=== PATIENT | female | born 2005 | race Caucasian/White ===

== ENCOUNTER 2025-02-03 10:53 | Outpatient (CLI) | payer OTHER, SELFPAY ==
--- NOTE | ~2025-02-03 | XR_ITS ---
Clinical Indication: Tachycardia PA and lateral views of the chest: Comparison: None Findings: The lungs are clear, without evidence of focal consolidation or pleural effusion. Cardiome diastinal silhouette is within normal limits. Bones and soft tissues are unremarkable. Impression: Normal chest. Reviewed, dictated and finalized at location . Impression: Normal chest.
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
== END 2025-02-03 10:54 | disposition home or self-care (01) ==
LOC: ANHIMG 11:04
DX: R00.0 Tachycardia, unspecified (principal)
CPT/HCPCS: 71046

== ENCOUNTER 2025-03-12 17:40 | Emergency (ER) | payer OTHER, SELFPAY ==
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
[2025-03-12 18:27] VITALS: BP 136/80; PULSE 100; RESP 16; TEMP 36.6; O2SAT 100
--- NOTE | 2025-03-12 21:25 | ED_ITS ---
HPI - General Adult General Chief complaint: Anxiety Stated complaint: lightheaded, numbness to arms but has resolved Time Seen by Provider: 03/12/25 20:53 History of Present Illness HPI narrative: This is a 19-year-old with history of anxiety panic attacks presenting with chief complaint of lightheadedness. She was in her car she started to feel lightheaded. She started taking rapid deep breaths to try to improve the lightheadedness developed pins and needles and tingling in her hands. She says this feels like a panic attack. She has had had massive amount of panic attacks this month and has been placed buspirone and sertraline which she stopped taking due to side effects. She denies any other physical complaints this time. She is currently asymptomatic. Related Data Allergies Allergy/AdvReac Type Severity Reaction Status Date / Time No Known Allergies Allergy Verified 03/12/25 17:41 Exam Narrative: APPEARANCE: Anxious. Head: atraumatic. EYES: EOMI, NOSE: Atraumatic NECK: Trachea midline RESPIRATORY: No increased rate of breathing CTAB CARDIOVASCULAR: RRR, no peripheral edema ABDOMINAL: Non-distended nontender MUSCULOSKELETAl: No obvious deformities NEURO: Alert. Moving 4/4 extremities SKIN:: Warm, dry. Normal color PSYCHIATRIC: Anxious Course Vital Signs Vital signs: Vital Signs Temperature 97.8 F 03/12/25 18:27 Pulse Rate 100 03/12/25 18:27 Respiratory Rate 16 03/12/25 18:27 Blood Pressure 136/80 03/12/25 18:27 Pulse Oximetry 100 03/12/25 18:27 Oxygen Delivery Room Air 03/12/25 18:27 Temperature 97.8 F 03/12/25 18:27 Pulse Rate 100 03/12/25 18:27 Respiratory Rate 16 03/12/25 18:27 Blood Pressure 136/80 03/12/25 18:27 Pulse Oximetry 100 03/12/25 18:27 Oxygen Delivery Room Air 03/12/25 18:27 Medical Decision Making [facility] Narrative Medical decision making narrative: -Course: This is a 19-year-old female history anxiety can panic attacks today with episode of lightheadedness. Symptoms consistent with an anxiety attack. Patient has been on appropriate medications but has stopped them due to side effects. I encouraged her to resume taking. She will call her primary care physician tomorrow morning to follow-up. Given return precautions for SI HI or another panic attack -DDX includes but is not limited to: Anxiety, panic disorder Vital Signs Vital Signs: Vital Signs Temperature 97.8 F 03/12/25 18:27 Pulse Rate 100 03/12/25 18:27 Respiratory Rate 16 03/12/25 18:27 Blood Pressure 136/80 03/12/25 18:27 Pulse Oximetry 100 03/12/25 18:27 Oxygen Delivery Room Air 03/12/25 18:27 Temperature 97.8 F 03/12/25 18:27 Pulse Rate 100 03/12/25 18:27 Respiratory Rate 16 03/12/25 18:27 Blood Pressure 136/80 03/12/25 18:27 Pulse Oximetry 100 03/12/25 18:27 Oxygen Delivery Room Air 03/12/25 18:27 Discharge Plan Discharge Clinical Impression: Hyperventilation, Acute anxiety Patient Disposition: Home Condition: Stable Instructions: Antibiotic Form, Anxiety (ED) Additional Instructions: You were seen in the emergency department for anxiety. Please follow-up primary care physician. Please take your anxiety meds as prescribed. Return if you develop thoughts of harming herself or other Patient Language: French Follow-up/Referrals: Baylee,Kelly Escalante, [employer] [Primary Care Provider] -
== END 2025-03-12 22:01 | disposition home or self-care (01) ==
PROVIDERS: Emergency Provider Emergency Medicine
DX: R06.4 Hyperventilation (principal); F41.0 Panic disorder [episodic paroxysmal anxiety]; T43.596A Underdosing of other antipsychotics and neuroleptics, initial encounter; T43.226A Underdosing of selective serotonin reuptake inhibitors, initial encounter; Z91.128 Patient's intentional underdosing of medication regimen for other reason
CPT/HCPCS: 99281

== ENCOUNTER 2025-05-21 10:50 | Emergency (ER) | payer OTHER, SELFPAY ==
[2025-05-21] VITALS (16 sets, daily range): BP systolic 109–134; BP diastolic 65–81; PULSE 75–125; RESP 13–30; TEMP 36.9; O2SAT 99–100
--- OUTSIDE RECORDS SUMMARY | 2025-05-21 10:52 | XMS_ITS | Data Portability ---
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 Lisa MD [facility] [address] [address] 05/04/2025 12:40:31 05/04/2025 13:10:35 Erythematous rash 099576910 R21 Rt arm Cellulitis of right upper limb [id number] 5743448 L03.113 Tinea corporis 87915862 B35.4 Rt arm Health Concerns Section Related Observation LastModified by Organization Detai ls LastModified Time None Recorded Concern Status LastModified by Organization Details LastModified Time None Recorded Advance Directives Directive N: Payers Insurance Date Sequence Insurance Name Policy Number Policy Villaseñor Covered Member ID Villaseñor Member ID Guarantor Name 05/04/2025 1 [facility] ON OR AFTER 05/17/21 (MEDICAID REPLACEMENT - HMO) Valarie Woody [id number] Valarie Woody 05/04/2025 1 [place]: [place] [employer] Valarie Mckay [id number] Valarie Mckay 05/04/2025 1 [employer] [facility] ON OR AFTER 10/17/2020 (MEDICAID REPLACEMENT - HMO) Valarie Mckay [id number] Valarie Woody Notes Date Note Type Note Provider Name and Address Organization Details Recorded Time 12/14/2024 text/html Valarie Mckay is a 19 year old female patient here via telehealth for COVID She tested positive for COVID-19 12/13/24. She has concerns with congestion and fever. She states her home temp was 101.5. She has not taken ibuprofen and tylenol.Concerns with JULIAN ear pressure, muffled [place], [employer]EL[employer] [address] [facility], [place], [address], [place] [employer] 12/14/2024 15:36:50 02/03/2025 text/html Valarie Mckay is [...] attacks almost weekly. RENATE Treviño [address], [address], [place], [address], [employer] [facility] [employer] 02/03/2025 11:12:34 03/15/2025 text/html Went to ER on 03/12/25 for light headedness and JULIAN hand numbness x 10 minutes. Notes that this occurred when she became concerned about possible medication side effects.Was told this was a panic attack with hyperventilation. Persistent anxiety. She stopped taking buspirone, felt that this was worsening her palpitations.She is currently taking sertraline 25 mg but wants to stop taking this.In the past she has taken everything except venlafaxine and benzodiazepineHas not gotten in to see psych, she wants to go somewhere with telehealth Concerns with tachycardia, most commonly in the morning. Concerns with a rash on her right arm. She has used two OTC anti-fungal sprays (lotrimin and terbinafine) with no relief. RENATE Treviño [address], [address], [place], [address], [employer] [facility] [employer] 03/15/2025 11:57:29 03/23/2025 text/html FU on anxiety Concerns with more frequent heavy chest spells. Concerns for potential POTS. Notes that her heart rate will increase when she changes positions. Concerns with splotchy red legs Her anxiety is much better controlled with alprazolam, she will psych at the end of the month RENATE Treviño [address], [address], [place], [address], DrAvailable [facility] 03/23/2025 12:09:06 05/04/2025 text/html ACV:Here with BF . C/o rash over her Rt arm for last 4 months. Pt has tried few OTC creams and [place] has tried Triamcinolone, but its not getting better. No other area rash. No other symptoms. Pt has this type of rash over her Lt shoulder last year and it got better with Lamisil. José Miguel Lisa MD [address], [facility] [address], [place], [address], [employer] 05/04/2025 13:10:10 OBGyn Episode No OBEpisode recorded.
--- OUTSIDE RECORDS SUMMARY | 2025-05-21 10:53 | XMS_ITS | Patient Health Record ---
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 Name Role Phone Zulma Escamilla Primary Care Provider [phone] Allergies No Known Allergies Reason For Referral Reason would like therapy Diagnosis 1 Depression (F32.9) Diagnosis 2 YULI (generalized anx iety disorder) (F41.1) Referral Organization [facility] Referring Provider First Name Zulma Referring Provider Last Name Andi Referring Provider Speciality Psychiatry Referred Provider Specialty Behavioral [facility] Clinical Notes Mariel Gonzalez 04/26/2025 03:00:39 PM > Left voicemail message Referral Priority Routine Medications Medication SIG (Take, Route, Frequency, Duration) Notes Start Date End Date Status Xanax 0.25 MG 1 tablet Orally up to 3 times daily; Duration: 30 days As needed for severe 08/26 anxiety 05/11/2025 Active Social History Tobacco Use: Social History Observation Description Date Details (start date - stop date) Never Smoker NA - NA Sex Assigned At : Social History Observation Description Sex Assigned At Female Tobacco Control (Standard) Question Answer Notes Tobacco use: Nonsmoker Additional Findings: Tobacco non-user Cu rrent nonsmoker,Nonsmoker for personal reasons,Never chewed tobacco,Never used moist powdered tobacco Problems Problem Type SNOMED Code ICD Code Onset Dates Problem Status W/U Status Risk Notes Problem Depression (210093177) Depression (F32.9) Active confirmed Problem YULI (generalized anxiety disorder) (F41.1) Active confirmed Vital Signs Height 5ft 5in in 04/04/2025 BMI Percentile 67.12 % 04/04/2025 Weight 140 lbs 04/04/2025 BMI 23.29 kg/m2 04/04/2025 Encounters Encounter Location Date Provider Diagnosis [address] [address] 04/04/2025 Zulma Escamilla YULI (generalized anxiety disorder) F41.1 and Depression F32.[address] [address] 05/11/2025 Zulma Escamilla YULI (generalized anxiety disorder) F41.[address] [address] 03/30/2025 Zulma Escamilla [address] [address] 04/18/2025 Zulma Escamilla YULI (generalized anxiety disorder) F41.[address] [address] 05/02/2025 Zulma Escamilla YULI (generalized anxiety disorder) F41.1 Assessments Encounter Date Diagnosis (ICD Code) Assessment Notes Treatment Notes Treatment Clinical Notes Section Notes 04/04/2025 Depression (ICD-10 - F32.9) 04/04/2025 YULI (generalized anxiety disorder) (ICD-10 - F41.1) 04/18/2025 YULI (generalized anxiety disorder) (ICD-10 - F41.1) 05/02/2025 YULI (generalized anxiety disorder) (ICD-10 - F41.1) 05/11/2025 YULI (generalized anxiety disorder) (ICD-10 - F41.1) Plan Of Treatment No Information Insurance Providers Payer Name Payer Address Payer Phone Subscriber Number Group Number Insured Name Patient Relationship to Insured Coverage Start Date Coverage End Date [employer] [address] [place] [address] [phone] [id number] Valarie Mckay Self - patient is the insured [employer] [address] [place] [address] [id number] Valarie Mckay Self - patient is the insured Medical (General) History Medical History History ICD Code chronic anxiety depression
--- OUTSIDE RECORDS SUMMARY | 2025-05-21 10:53 | XMS_ITS ---
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 Name Role Phone Zulma Escamilla Primary Care Provider REASON FOR VISIT New Patient Psych Eval Social History Sex Assigned At : Social History Observation Description Sex Assigned At Female Encounters Encounter Location Date Provider Diagnosis [address] [place] [address] 03/30/2025 Zulma Escamilla Plan Of Treatment No Information Progress Notes * Valarie POPEDOB:2005 (19 yo F)Acc No.[id number]:03/30/2025 UNLOCKED PROGRESS NOTE Patient: Valarie KING Provider: JOSELINE Burnham :2005 A ge:19 Y S ex:Female Date:03/30/2025 Address:[address] [facility] Subjective: * Chief Complaints: * 1 . New Patient Psych Eval. * Medical History: Objective: * Vitals: Assessment: Plan: * Treatment: * * Electronic signature of Diane Escamilla on 05/21/2025 at 10:52 AM CDT Sign off status: Pending * Provider: JOSELINE Burnham Date: 03/30/2025 Generated for lAlegrai ng/Fachynag/eTransmitting on: 05/21/2025 10:52 AM CDT
--- NOTE | 2025-05-21 11:30 | ECG_ITS ---
Test Date: 2025-05-21 11:33:42 Measurements Intervals [place] Rate: 88 P: 51 GA: 125 QRS: 68 QRSD: 78 T: 33 QT: 355 QTc: 431 Interpretive Statements SINUS RHYTHM WITH MARKED SINUS ARRHYTHMIA No previous ECG available for comparison Electronically Signed On 05-21-2025 14:09:48 CDT by Guillermo Batista M.D.
[2025-05-21] MEDS: SODIUM CHLORIDE 0.9% IV 1,000 ML 999 ML IV CONT (12:05)
[2025-05-21 12:07] LABS: BEDSIDEPREGUCG Negative (Negative)
[2025-05-21 12:10] LABS: Hematocrit 41.5 % (37.0-47.0); Hemoglobin 14.2 g/dL (12.0-15.0); Immature Granulocyte Percent A 0.2 % (0-0.5); Lymphocytes Absolute Auto 2.11 K/mm3 (0.9-3.2); Mean Corpuscular HGB Conc 34.2 g/dl (32-36); Mean Corpuscular Hemoglobin 30.3 pg (26-34); Mean Corpuscular Volume 88.5 fl (80-100); Nucleated Red Blood Cells Absolute Auto 0.000 K/mm3 (0.0-0.012); Nucleated Red Blood Cells Perc 0.0 % (0.0-0.2); Platelet Count Result 368 k/mm3 (150-375); Red Blood Count 4.69 M/mm3 (4.2-5.4); White Blood Count 6.5 K/mm3 (4.5-10.0)
[2025-05-21 12:19] LABS: Alanine Aminotransferase 29 U/L (6-35); Albumin Level 5.0 g/dL (3.7-5.6); Alkaline Phosphatase 43 U/L (45-116); Anion Gap 14 mmol/L (4-12); Aspartate Amino Transferase 35 U/L (14-36); Bilirubin,Total 1.0 mg/dL (0.2-1.3); Blood Urea Nitrogen 9 mg/dL (8-21); Calcium 9.8 mg/dL (8.9-10.7); Carbon Dioxide 22 mmol/L (22-30); Chloride 107 mmol/L (98-107); Estimated Glomerular Filt Rate > 60; Glucose 100 mg/dL (65-110); Magnesium 1.9 mg/dL (1.6-2.3); Potassium 3.4 mmol/L (3.4-5.0); Sodium 143 mmol/L (134-143); Total Protein 9.1 g/dL (6.3-8.6)
--- NOTE | 2025-05-21 12:27 | ED_ITS ---
HPI - General Adult General Chief complaint: Dizziness Stated complaint: lightheaded Time Seen by Provider: 05/21/25 11:30 History of Present Illness HPI narrative: The patient 19-year-old female who presents emergency department chief complaint of dizziness and sweatiness. The patient states she is being worked up for POTS also has history of anxiety the patient states she has been more stressed lately and reports that she took a dose of Xanax a but is still having symptoms. Related Data Allergies Allergy/AdvReac Type Severity Reaction Status Date / Time No Known Allergies Allergy Verified 05/21/25 10:59 Review of Systems 2 Review of Systems: A 10 system review of systems was completed on the patient and is negative except for what is stated in the HPI. Nursing and ancillary documentation was reviewed. PMFSH Social History Social History Substance use type: unknown Exam 2 Narrative: GENERAL: Well-appearing, well-nourished, and in no acute distress. HEAD: Normocephalic, atraumatic. EYES: PERRLA and EOMI. ENT: Nares clear, no rhinorrhea or epistaxis. Mucous membranes moist. NECK: Supple. CHEST: Clear to auscultation. No respiratory distress. HEART: Regular rate and rhythm. No murmur heard. Normal peripheral pulses. ABDOMEN: Soft, nontender, nondistended, normal active bowel sounds. EXTREMITIES: Normal range of motion. No edema. SKIN: Warm, dry, no rash. NEURO: No focal deficits. Alert and oriented x3. PSYCH: Anxious mood and affect. Course Vital Signs Vital signs: Vital Signs Temperature 36.9 C 05/21/25 10:59 Pulse Rate 120 H 05/21/25 10:59 Respiratory Rate 30 H 05/21/25 10:59 Blood Pressure 123/80 05/21/25 10:59 Pulse Oximetry 100 05/21/25 10:59 Oxygen Delivery Room Air 05/21/25 10:59 Temperature 36.9 C 05/21/25 10:59 Pulse Rate 87 05/21/25 13:31 Respiratory Rate 21 H 05/21/25 13:31 Blood Pressure 121/75 05/21/25 13:31 Pulse Oximetry 100 05/21/25 13:31 Oxygen Delivery Room Air 05/21/25 10:59 Medical Decision Making MDM Narrative Medical decision making narrative: Differential diagnosis includes dysrhythmia, electrolyte abnormality, dehydration EKG showed no acute dysrhythmia CBC showed no acute abnormality CMP showed no acute abnormality the magnesium was normal urinalysis showed no evidence UTI Vital Signs Vital Signs: Vital Signs Temperature 36.9 C 05/21/25 10:59 Pulse Rate 120 H 05/21/25 10:59 Respiratory Rate 30 H 05/21/25 10:59 Blood Pressure 123/80 05/21/25 10:59 Pulse Oximetry 100 05/21/25 10:59 Oxygen Delivery Room Air 05/21/25 10:59 Temperature 36.9 C 05/21/25 10:59 Pulse Rate 87 05/21/25 13:31 Respiratory Rate 21 H 05/21/25 13:31 Blood Pressure 121/75 05/21/25 13:31 Pulse Oximetry 100 05/21/25 13:31 Oxygen Delivery Room Air 05/21/25 10:59 Lab Data 05/21/25 12:04 05/21/25 12:04 Labs: Lab Results 05/21/25 05/21/25 05/21/25 Range/Units 12:03 12:04 12:05 WBC 6.5 (4.5-10.0) K/mm3 RBC 4.69 (4.2-5.4) M/mm3 Hgb 14.2 (12.0-15.0) g/dL Hct 41.5 (37.0-47.0) % MCV 88.5 (80-100) fl MCH 30.3 (26-34) pg MCHC 34.2 (32-36) g/dl RDW 13.1 (11.5-14.5) % Plt Count 368 (150-375) k/mm3 MPV 9.2 (7.4-10.4) fl Immature Gran % (Auto) 0.2 (0-0.5) % Neut % (Auto) 53.9 (45.5-73.1) % Lymph % (Auto) 32.5 (18.3-44.2) % [place] % (Auto) 10.0 H (2.6-8.5) % Eos % (Auto) 2.8 (0-4.4) % Baso % (Auto) 0.6 (0.2-1.2) % Lymph # (Auto) 2.11 (0.9-3.2) K/mm3 [place] # (Auto) 0.7 H (0.1-0.6) K/mm3 Eos # (Auto) 0.2 (0-0.3) K/mm3 Baso # (Auto) 0.0 (0.0-0.1) K/mm3 Abs Immat Gran (auto) 0.01 (0.00-0.031) K/mm3 Absolute Neuts (auto) 3.5 (1.3-6.7) K/mm3 Absolute Nucleated RBC 0.000 (0.0-0.012) K/mm3 Nucleated RBC % 0.0 (0.0-0.2) % Sodium 143 (134-143) mmol/L Potassium 3.4 (3.4-5.0) mmol/L Chloride 107 (98-107) mmol/L Carbon Dioxide 22 (22-30) mmol/L Anion Gap 14 H (4-12) mmol/L BUN 9 (8-21) mg/dL Creatinine 0.64 L (0.7-1.0) mg/dL Estim Creat Clear Calc Not Reportable Estimated GFR > 60 (59 - ) Glucose 100 (65-110) mg/dL Calcium 9.8 (8.9-10.7) mg/dL Magnesium 1.9 (1.6-2.3) mg/dL Total Bilirubin 1.0 (0.2-1.3) mg/dL AST 35 (14-36) U/L ALT 29 (6-35) U/L Alkaline Phosphatase 43 L (45-116) U/L Total Protein 9.1 H (6.3-8.6) g/dL Albumin 5.0 (3.7-5.6) g/dL Urine Color Yellow (Yellow) Urine Appearance Cloudy H (Clear) Urine pH 8.5 (5.0-9.0) Ur Specific [place] 1.006 (1.001-1.035) Urine Protein 1+ H (Negative) mg/dL Urine Glucose (UA) Negative (Negative) mg/dL Urine Ketones Negative (Negative) mg/dL Ur Blood (Man) 3+ H (Negative) Urine Nitrate Negative (Negative) Urine Bilirubin Negative (Negative) Urine Urobilinogen 0.2 (<2.0) mg/dL Add Ur Microanalysis Reviewed Leukocyte Esterase Rfl 2+ H (Negative) RODRIGO/UL Urine RBC 51-100 H (0-2) /hpf Urine WBC 0-5 (0-3) /hpf Ur Squamous Epith Cells Few (Few) /hpf Urine Bacteria 1+ H /hpf Urine Casts 0-2 POC Urine HCG, Qual Negative (Negative) Discharge Plan Discharge Clinical Impression: Dizziness, Heart palpitations Patient Disposition: Home Condition: Stable Instructions: Antibiotic Form, Heart Palpitations (ED), Dizziness (ED) Patient Language: Italian Follow-up/Referrals: Baylee,Kelly Escalante, [employer] FACTORY WORKER [Primary Care Provider] - Time of Disposition: 14:13
[2025-05-21 13:25] LABS: Add Urine Microscopic? YES; Appearance Urine Cloudy (Clear); Glucose Urine UA Negative (Negative); Leukocyte Esterase Ur 2+ LEU/UL (Negative); Need Manual Microscopic Reviewed; Nitrate Urine Negative (Negative); Non Pathogenic Casts 0-2; Specific Grav Ur 1.006 (1.001-1.035)
== END 2025-05-21 14:27 | disposition home or self-care (01) ==
PROVIDERS: Emergency Provider Emergency Medicine
DX: R42 Dizziness and giddiness (principal); R00.2 Palpitations
CPT/HCPCS: 36415; 80053; 81001; 81025; 83735; 85025; 87086; 87186; 93005; 96360; 99284; J7030